=== PATIENT | male | born 1970 | race Caucasian/White ===

== ENCOUNTER 2022-08-23 17:07 | Emergency (ER) | payer MEDICARE, MEDICAID, SELFPAY ==
--- NOTE | ~2022-08-23 | CT_ITS ---
EXAMINATION: CT ABDOMEN AND PELVIS WITH CONTRAST CLINICAL INFORMATION: Right upper quadrant pain. COMPARISON: CT abdomen/pelvis 01/04/2018. TECHNIQUE: Multidetector volumetric images were obtained from the superior aspect of the liver through the pubic symphysis following administration 85 mL of Omnipaque 350 intravenous contrast. Sagittal and coronal reformatted images were obtained on the technologist's workstation. Oral contrast: No This CT examination was performed using dose optimization techniques as appropriate, variously including the following: *Automated exposure control *Adjustment of mA and/or kV according to patient size (this includes techniques or standardized protocols for targeted exams where dose is matched to indication/reason for exam; i.e. extremities or head) *Use of iterative reconstruction technique DLP: 467 mGy-cm FINDINGS: LUNG BASES: Small calcified granulomas in the right lower lobe. No consolidation or pleural effusion. LIVER, GALLBLADDER, AND BILIARY TREE: The liver is normal in size, shape and attenuation. No focal liver lesion. No evidence of calcified cholelithiasis or associated inflammatory changes to suspect acute cholecystitis. There is mild intrahepatic biliary ductal dilatation, as well as mild dilatation of the common hepatic duct and upper third of the common bile duct. No discrete calcified choledocholithiasis noted. PANCREAS: No peripancreatic free fluid or fat stranding. The main duct is nondilated. SPLEEN: Unremarkable. ADRENAL GLANDS: Unremarkable. KIDNEYS AND URETERS: Bilateral simple cysts, largest in the right kidney measuring up to 8 cm craniocaudally, for which no imaging follow-up is recommended. Symmetric nephrograms. No hydronephrosis. No perinephric fat stranding. BLADDER: Unremarkable. GASTROINTESTINAL TRACT: Nonspecific gastric distention. There is moderate wall thickening of proximal jejunum (2:41). No abnormal small bowel dilatation. Postsurgical changes from prior appendectomy. The transverse and left hemicolon are underdistended limiting assessment of wall thickening. Mild colonic diverticulosis without significant pericolonic fat stranding. Moderate amount of stool in the rectum. ABDOMINAL WALL: No significant hernia is appreciated. LYMPH NODES: No lymphadenopathy. VASCULAR: Normal caliber abdominal aorta. PELVIC VISCERA: Unremarkable. OSSEOUS STRUCTURES: No acute or aggressive appearing osseous abnormalities. CT/CT abdomen pelvis w IV con IMPRESSION: 1. Moderate wall thickening of a short segment of the proximal jejunum. Correlate clinically for acute enteritis and recommend a follow-up to ensure resolution. 2. Mild indeterminate intra and extrahepatic biliary duct dilatation without evidence of calcified choledocholithiasis. Correlation with MRCP could be obtained as clinically indicated. 3. Nonspecific gastric dilatation, differential consideration include postprandial state, gastroparesis or gastric outlet obstruction. 4. Mild colonic diverticulosis without evidence of acute diverticulitis.
[2022-08-23 17:11] VITALS: BP 158/107; PULSE 73; RESP 18; TEMP 36.8; O2SAT 97; BMI 23.6
--- NOTE | 2022-08-23 17:15 | ECG_ITS ---
Test Reason : CHEST PAIN Blood Pressure : / mmHG Vent. Rate : 076 BPM Atrial Rate : 076 BPM P-R Int : 128 ms QRS Dur : 092 ms QT Int : 372 ms P-R-T Axes : 064 045 023 degrees QTc Int : 418 ms Normal sinus rhythm with sinus arrhythmia Normal ECG When compared with ECG of 04-JAN-2018 22:49, No significant change was found Referred By: Generic ED Physician Electronically Signed By:KELLY HANDLEY
[2022-08-23 17:35] LABS: Basophils Absolute Auto 0.1 X10*3/uL (0.0-0.2); Basophils Percent Auto 0.7 % (0-2); Eosinophils Percent Auto 0.3 % (0-4); Hematocrit 45.2 % (42.0-52.0); Hemoglobin 15.4 g/dl (14.0-18.0); Imm Gran Abs Auto 0.07 X10*3/uL (0.00-0.03); Imm Gran Pct Auto 0.5 % (0.0-0.4); Lymphocytes Absolute Auto 1.6 X10*3/uL (1.2-4.9); Lymphocytes Percent Auto 11.2 % (20-40); MANUAL DIFF FLAG NO; Mean Corpuscular HGB Conc 34.1 g/dl (31.0-36.0); Mean Corpuscular Hemoglobin 29.4 pg (27.0-33.0); Mean Corpuscular Volume 86.3 fL (80.0-98.0); Mean Platelet Volume 9.5 fL (9.4-12.4); Monocytes Absolute Auto 0.9 X10*3/uL (0.1-1.2); Monocytes Percent Auto 6.2 % (2-11); Neutrophils Absolute Auto 11.4 x10*3/uL (2.0-8.3); Neutrophils Percent Auto 81.1 % (45-73); Platelet Count 385 X10*3/uL (160-400); Red Blood Count 5.24 X10*6/uL (4.60-5.80); Red Cell Distribution Width 12.1 % (11.0-16.0)
[2022-08-23 17:56] LABS: Alanine Aminotransferase 60 U/L (0-40); Albumin Level 4.8 g/dL (3.5-5.0); Alkaline Phosphatase 82 U/L (39-117); Anion Gap 15 (12-20); Aspartate Amino Transferase 56 U/L (5-37); Bilirubin Direct 0.6 mg/dL (0.0-0.5); Bilirubin Total 1.1 mg/dL (0.0-1.0); Blood Urea Nitrogen 12 mg/dL (9-16); Calcium 10.8 mg/dL (8.4-10.2); Carbon Dioxide 32 mmol/L (22-29); Chloride 100 mmol/L (96-108); Estimated Glomerular Filt Rate > 60; Glucose Random 121 mg/dL (60-115); Lipase 24 U/L (8-78); Potassium 5.5 mmol/L (3.3-5.1); Sodium 141 mmol/L (135-145)
[2022-08-23 17:59] LABS: B Type Natriuretic Peptide < 10 pg/mL (<100)
[2022-08-23 18:03] LABS: Troponin-I High Sensitivity < 2.7 ng/L (<3.5-35.0)
[2022-08-23 18:18] VITALS: BP 155/95; PULSE 78; RESP 20; TEMP 37.4; O2SAT 97
--- NOTE | 2022-08-23 18:43 | ED.CHESTPAIN ---
HPI - Chest Pain General Chief Complaint: Chest Pain Stated Complaint: Mid chest pain, mid abd pain Time Seen by Provider: 08/23/22 18:42 Source: patient and family (, Rashida) Mode of arrival: ambulatory Limitations: no limitations History of Present Illness HPI narrative: 52-year-old male who presents emergency department for evaluation lower chest and upper abdominal pain which began at 14:30 hours. Patient states that he had a bowl of cereal to eat at noon time. He states that he was watching television at 14:30 hours when he had a sudden onset of lower chest and upper abdominal pain. He states the pain is been constant since onset but waxing waning intensity. The pain is 8/10 at its worst. He states that this is his 3rd to 4th episode of this type of pain in the last 2-3 weeks. He believes the pain comes on several hours after eating food. He took some anti-gas medication with no relief his pain. Describes the pain is a tightness and burning sensation. He denied fever but he did have chills and sweats. He had nausea with no vomiting. He denied shortness of breath or dyspnea on exertion. He denied dark tarry stools or bloody stools. He denied frequency, urgency or dysuria. Past surgical history is significant for appendectomy. Related Data Allergies Allergy/AdvReac Type Severity Reaction Status Date / Time No Known Allergies Allergy Unverified 11/20/19 15:22 [No Known Allergies*] Review of Systems Review of Systems: Yes all other systems are reviewed and are negative [facility] Past Medical History [facility] Narrative: Past medical history: Hypertension, hyperlipidemia, asthma, anxiety, degenerative disc disease. Past surgical history: Appendectomy. Social history: The patient is a former smoker and quit smoking 8 years prior. He drinks alcohol rarely. He denies drug use. Social History Social History Alcohol intake: never Smoked in Last 30 Days: No Advance Directives: No Advance Directives Information Provided: Yes Physical Exam Vital Signs: Vital Signs: Last Vital Signs Temp 99.3 F 08/23/22 18:18 Pulse 86 08/23/22 20:13 Resp 14 08/23/22 20:13 BP 145/82 H 08/23/22 20:13 Pulse Ox 99 08/23/22 20:13 O2 Del Method Room Air 08/23/22 20:13 BMI result Body Mass Index 23.6 Const: General: cooperative and no acute distress Orientation/consciousness: oriented to person and oriented to place Limitations: no limitations HEENT: Head: Yes normal to inspection, Yes normocephalic and Yes atraumatic Ears: external ears normal General nose exam: Normal external nose present Face and sinus: Yes normal facial exam Mouth: Normal oral and palatal mucosa present Throat: Yes posterior oropharynx normal Eyes: General: appearance normal, both eyes and all related structures Pupils: Equal, round and reactive pupils present Neck: Neck: Yes normal visual inspection, Yes no lymphadenopathy, Yes trachea midline and Yes supple Chest: Chest palpation & inspection: normal inspection of the chest and normal palpation of entire chest wall Resp: Effort & Inspection: normal respiratory effort and able to speak in complete sentences Auscultation: clear to auscultation bilaterally Cardio: Rate: regular rate Rhythm: regular rhythm Heart sounds: S1 normal heart sound present, S2 normal heart sound present and no murmurs GI: Other: Patient's abdomen does not appear to be distended, has normoactive bowel sounds, he has moderate to severe right upper quadrant tenderness with a positive Espinoza sign, there is no voluntary or involuntary guarding : General: Yes no CVA tenderness Back/Spine/Pelvis: Back: no CVA tenderness Skin: General skin exam: no rashes or lesions noted Neuro: General: oriented to person and oriented to place Cranial nerves: Yes CN's II-XII intact bilaterally and Yes Equal, round and reactive pupils present Cognition (Neuro): normal cognition Motor exam (neuro): 5/5 motor strength present throughout Extrem: General: Yes normal to inspection Psych: Appearance: grossly normal Speech and movement: Normal speech and movement present Affect: normal affect Attitude: cooperative Thought process: Normal thought process present Thought content: Normal thought content present Medications Administered Discontinued Medications Generic Name Dose Route Start Last Admin Trade Name Freq PRN Reason Stop Dose Admin Sodium Chloride 1,000 mls @ 999 mls/hr 08/23/22 19:00 08/23/22 21:25 Ns IV 08/23/22 20:00 Infused .Q1H1M STA Infusion Iohexol 100 ml 08/23/22 19:52 08/23/22 19:52 Iohexol 350 Mg/Ml 100 Ml Infus..Btl IV 08/23/22 19:53 85 ml ONCE ONE Administration Ketorolac Tromethamine 15 mg 08/23/22 19:00 08/23/22 19:54 Ketorolac Tromethamine 15 Mg/Ml Vial IVPUSH 08/23/22 19:01 15 mg ONCE STA Administration Morphine Sulfate 4 mg 08/23/22 19:00 08/23/22 19:54 Morphine Sulfate 4 Mg/Ml Cartridge IVPUSH 08/23/22 19:01 4 mg ONCE STA Administration Protocol Ondansetron HCl 4 mg 08/23/22 19:00 08/23/22 19:54 Ondansetron Hcl 4 Mg/2 Ml Vial IVPUSH 08/23/22 19:01 4 mg ONCE ONE Administration Medical Decision Making Medical Decision Making MDM Narrative: 52-year-old male who presents emergency department for evaluation of bilateral lower chest and right upper quadrant tenderness which began suddenly at 14:30 hours while he was at rest. Patient had serial to eat at noon time. He states that this is 3rd to 4th episode of this type of pain in the last 2 weeks. Patient took some anti-gas medications with only minimal improvement of his pain. Vital signs revealed an elevated blood pressure 158/107 otherwise unremarkable. Examination did reveal right upper quadrant tenderness with a positive Espinoza sign. Following tests were ordered CBC, BMP, troponin, BNP, lipase, liver panel, urinalysis, CT scan of the abdomen pelvis with IV contrast. Patient was ordered to get Toradol 15 mg IV, morphine 4 mg IV, Zofran 4 mg IV and normal saline x1 L 2209: Patient's laboratory evaluation revealed slight elevation in his AST and ALT with normal alk-phos and normal lipase. Patient did have an elevated WBC. Patient's abdominal pain improved significantly above treatment, patient has tenderness resolved completely. CT scan of the abdomen pelvis with IV con did not reveal a clear etiology for the patient's pain. Concerned the patient's pain may be secondary biliary colic. We do not have ultrasound this evening. Patient was advised to contact his PCP to get a gallbladder ultrasound as soon as possible to evaluate for possible gallstones. Patient was advised to stay on a low-fat diet and to return to the emergency department if this pain got worse worker to help in you symptoms were concerning to him. Differential Diagnosis Differential diagnosis includes but is not limited to cholecystitis, diverticulitis, pancreatitis, viral syndrome, gastritis Admission/Observation Consideration of admission/observation: Escalation of care including admission/observation considered Lab Data MDM Lab Attestation statement: I reviewed the patient's lab results. My interpretation patient's laboratory evaluation is as follows: Elevated WBC 75923. Elevated potassium 5.5. Elevated bicarb 32. Elevated glucose 121. Elevated AST and ALT of 56 and 60 with normal alk-phos of 82. Elevated total bilirubin 1.1. Troponin was below detectable limits. Lipase was normal. 08/23/22 17:30 08/23/22 17:30 Labs: Lab Results 08/23/22 08/23/22 08/23/22 Range/Units 17:30 17:30 17:30 WBC 14.0 H (4.8-10.8) X10*3/uL RBC 5.24 (4.60-5.80) X10*6/uL Hgb 15.4 (14.0-18.0) g/dl Hct 45.2 (42.0-52.0) % MCV 86.3 (80.0-98.0) fL MCH 29.4 (27.0-33.0) pg MCHC 34.1 (31.0-36.0) g/dl RDW 12.1 (11.0-16.0) % Plt Count 385 (160-400) X10*3/uL MPV 9.5 (9.4-12.4) fL Immature Gran % (Auto) 0.5 H (0.0-0.4) % Neut % (Auto) 81.1 H (45-73) % Lymph % (Auto) 11.2 L (20-40) % [place] % (Auto) 6.2 (2-11) % Eos % (Auto) 0.3 (0-4) % Baso % (Auto) 0.7 (0-2) % Lymph # (Auto) 1.6 (1.2-4.9) X10*3/uL [place] # (Auto) 0.9 (0.1-1.2) X10*3/uL Eos # (Auto) 0.0 (0.0-0.4) X10*3/uL Baso # (Auto) 0.1 (0.0-0.2) X10*3/uL Abs Immat Gran (auto) 0.07 H (0.00-0.03) X10*3/uL Absolute Neuts (auto) 11.4 H (2.0-8.3) x10*3/uL Absolute Nucleated RBC 0.000 (0.0-0.012) X10*3/uL Nucleated RBC % (auto) 0.0 (0.0-0.2) /100WBC Sodium 141 (135-145) mmol/L Potassium 5.5 H (3.3-5.1) mmol/L Chloride 100 (96-108) mmol/L Carbon Dioxide 32 H (22-29) mmol/L Anion Gap 15 (12-20) BUN 12 (9-16) mg/dL Creatinine 1.16 (0.5-1.4) mg/dL Estim Creat Clear Calc 68.0 Estimated GFR > 60 Random Glucose 121 H (60-115) mg/dL Calcium 10.8 H (8.4-10.2) mg/dL Total Bilirubin 1.1 H (0.0-1.0) mg/dL Direct Bilirubin 0.6 H (0.0-0.5) mg/dL AST 56 H (5-37) U/L ALT 60 H (0-40) U/L Alkaline Phosphatase 82 (39-117) U/L Troponin I High Sens < 2.7 (<3.5-35.0) ng/L B-Natriuretic Peptide (<100) pg/mL Total Protein 8.0 (6.5-8.0) g/dL Albumin 4.8 (3.5-5.0) g/dL Lipase 24 (8-78) U/L Urine Color Urine Appearance Urine pH (5.0-9.0) Ur Specific [place] (1.005-1.025) Urine Protein (Neg-Trace) mg/dL Urine Glucose (UA) (Negative) mg/dL Urine Ketones (Negative) mg/dL Urine Blood (Negative) Urine Nitrite (Negative) Ur Leukocyte Esterase (Negative) 08/23/22 08/23/22 Range/Units 17:30 21:33 WBC (4.8-10.8) X10*3/uL RBC (4.60-5.80) X10*6/uL Hgb (14.0-18.0) g/dl Hct (42.0-52.0) % MCV (80.0-98.0) fL MCH (27.0-33.0) pg MCHC (31.0-36.0) g/dl RDW (11.0-16.0) % Plt Count (160-400) X10*3/uL MPV (9.4-12.4) fL Immature Gran % (Auto) (0.0-0.4) % Neut % (Auto) (45-73) % Lymph % (Auto) (20-40) % [place] % (Auto) (2-11) % Eos % (Auto) (0-4) % Baso % (Auto) (0-2) % Lymph # (Auto) (1.2-4.9) X10*3/uL [place] # (Auto) (0.1-1.2) X10*3/uL Eos # (Auto) (0.0-0.4) X10*3/uL Baso # (Auto) (0.0-0.2) X10*3/uL Abs Immat Gran (auto) (0.00-0.03) X10*3/uL Absolute Neuts (auto) (2.0-8.3) x10*3/uL Absolute Nucleated RBC (0.0-0.012) X10*3/uL Nucleated RBC % (auto) (0.0-0.2) /100WBC Sodium (135-145) mmol/L Potassium (3.3-5.1) mmol/L Chloride (96-108) mmol/L Carbon Dioxide (22-29) mmol/L Anion Gap (12-20) BUN (9-16) mg/dL Creatinine (0.5-1.4) mg/dL Estim Creat Clear Calc Estimated GFR Random Glucose (60-115) mg/dL Calcium (8.4-10.2) mg/dL Total Bilirubin (0.0-1.0) mg/dL Direct Bilirubin (0.0-0.5) mg/dL AST (5-37) U/L ALT (0-40) U/L Alkaline Phosphatase (39-117) U/L Troponin I High Sens (<3.5-35.0) ng/L B-Natriuretic Peptide < 10 (<100) pg/mL Total Protein (6.5-8.0) g/dL Albumin (3.5-5.0) g/dL Lipase (8-78) U/L Urine Color Yellow Urine Appearance Clear Urine pH 6.0 (5.0-9.0) Ur Specific [place] >= 1.030 H (1.005-1.025) Urine Protein Negative (Neg-Trace) mg/dL Urine Glucose (UA) Negative (Negative) mg/dL Urine Ketones Negative (Negative) mg/dL Urine Blood Negative (Negative) Urine Nitrite Negative (Negative) Ur Leukocyte Esterase Negative (Negative) Independent Interpretation I performed an independent interpretation of an: EKG Interpretation: My interpretation the patient's 12 EKG done at 17:21 hours is as follows: Normal sinus rhythm with a rate of 76, normal CA interval, QRS duration QTC interval, no ST segment elevation, no ST segment depression, no significant T-wave abnormalities, no PACs, no PVCs this is a normal EKG. Radiology Impression Discussion of test interpretation with radiology: I have reviewed the radiologist's reading. Radiologist Impression: CT abdomen pelvis w IV con IMPRESSION: 1. Moderate wall thickening of a short segment of the proximal jejunum. Correlate clinically for acute enteritis and recommend a follow-up to ensure resolution. 2. Mild indeterminate intra and extrahepatic biliary duct dilatation without evidence of calcified choledocholithiasis. Correlation with MRCP could be obtained as clinically indicated. 3. Nonspecific gastric dilatation, differential consideration include postprandial state, gastroparesis or gastric outlet obstruction. 4. Mild colonic diverticulosis without evidence of acute diverticulitis. Dictated By:Kiesha EscobarSigned By:<Electronically signed by Kiesha Escobar in OV> Discharge Plan Discharge Clinical Impression: Biliary colic Abdominal pain Qualifiers: Abdominal location: right upper quadrant Qualified Code(s): R10.11 - Right upper quadrant pain Patient Disposition: Home, Self-Care Instructions: Biliary Colic (ED), Low Fat Diet (ED) Additional Instructions: Your laboratory evaluation did reveal an elevated white blood cell count and a slight elevation in your liver tests. Your abdominal exam did reveal significant tenderness with palpation of the right upper quadrant of your abdomen, your gallbladder is located in this area The CT scan of your abdomen pelvis with IV contrast did not reveal any gallbladder wall thickening or any other finding that explains your pain. I am concerned that you have gallstones, these do not show up on CT scans(they are made out of cholesterol) but gallstones do show up on ultrasound You need to call your doctor tomorrow and get an outpatient ultrasound of your gallbladder. If you have gallstones then you will need to follow-up with the surgeon to determine if your gallbladder needs to be removed. Stay on a low-fat diet. Please return to the emergency department if her symptoms get worse or if you develop any new symptoms that are concerning to you. If you have gallstones on your ultrasound, you can follow-up with our on-call surgeon, Dr. García or your primary care doctor can refer you to a surgeon. Referrals: Jayy García MD [Physician] - 1 week (Right upper quadrant pain concerning for biliary colic)
[2022-08-23] MEDS: iohexoL 350 MG/ML 100 ML INFUS..BTL IV (19:52)
[2022-08-23] MEDS: 0.9 % Sodium Chloride 1,000 ML 999 ML IV (19:53)
[2022-08-23] MEDS: Ketorolac Tromethamine 15 MG/ML VIAL IVPUSH (19:54)
[2022-08-23] MEDS: Morphine Sulfate 4 MG/ML CARTRIDGE IVPUSH (19:54)
[2022-08-23] MEDS: ondansetron HCL 4 MG/2 ML VIAL IVPUSH (19:54)
[2022-08-23 19:57] VITALS: BP 149/79; PULSE 75; RESP 14; O2SAT 99
[2022-08-23 20:13] VITALS: BP 145/82; PULSE 86; RESP 14; O2SAT 99
[2022-08-23 21:41] LABS: Appearance Urine Clear; Color Urine Yellow; Glucose Urine UA Negative (Negative); Leukocyte Esterase Urine Negative (Negative); Nitrite Urine Negative (Negative); Specific Gravity - Urine >= 1.030 (1.005-1.025); Urine Blood Negative (Negative); Urine Ketones Negative (Negative); Urine Protein Negative (Neg-Trace)
== END 2022-08-23 22:25 | disposition home or self-care (01) ==
PROVIDERS: Emergency Provider Emergency Medicine Emergency Medical Services
DX: K80.50 Calculus of bile duct without cholangitis or cholecystitis without obstruction (principal); R10.11 Right upper quadrant pain
CPT/HCPCS: 36415; 74177; 80048; 80076; 81003; 83690; 83880; 84484; 85025; 93005; 96361; 96374; 96375; 99284; 99285; J1885; J2270; J2405; Q9967

== ENCOUNTER 2022-08-30 07:54 | Day surgery (SDC) | payer MEDICARE, MEDICAID, SELFPAY ==
[2022-08-30] VITALS (15 sets, daily range): BP systolic 127–179; BP diastolic 74–104; PULSE 60–99; RESP 11–24; TEMP 36.1–36.8; O2SAT 97–100; BMI 23.6
--- NOTE | ~2022-08-30 | US_ITS ---
EXAMINATION: US ABDOMEN LIMITED CLINICAL INFORMATION: Epigastric abdominal pain. Evaluate for acute cholecystitis.. COMPARISON: CT abdomen and pelvis from 08/23/2022 TECHNIQUE: Real-time limited imaging of the right upper quadrant abdominal viscera is focused on the gallbladder and common duct. FINDINGS: Gallbladder is physiologically distended and its wall thickness is 2-3 mm. No gallbladder wall edema or pericholecystic fluid. Small mobile stones are present in the gallbladder. No polyps or sludge. Common bile duct is mildly dilated up to 0.7 cm diameter. Mild ductal dilatation also observed on the recent abdomen CT from 08/23/2022. The visualized proximal common bile duct has normal contour. No stones within the visualized portion of the duct. The distal CBD is obscured by bowel gas. No free fluid in the visualized portion of the abdomen. The visualized segments of the liver have normal contour and echotexture. US/US abdomen limited IMPRESSION: * Cholelithiasis without sonographic evidence of acute cholecystitis. * Common bile duct is mildly dilated to 0.7 cm diameter, unchanged compared to recent abdomen CT from 08/23/2022. Consider correlation with bilirubin levels and liver function tests. If there is any clinical suspicion for potential choledocholithiasis, then further evaluation with MRCP could be performed.
--- NOTE | 2022-08-30 08:09 | ED.ABDPAIN ---
HPI - Abdominal Pain General Chief Complaint: Abdominal Pain Stated Complaint: gallbladder pain Time Seen by Provider: 08/30/22 07:58 Source: patient Mode of arrival: ambulatory Limitations: no limitations History of Present Illness HPI narrative: 52-year-old male presents for abdominal pain. The abdominal pain is in the upper abdomen. As severe, 8/10. It is constant. There is no clear relieving or exacerbating features. Pain is described as aching and pressure-like. Denies any nausea vomiting. Denies any fevers or chills. Denies any urinary complaints. Patient was in the emergency department yesterday. Had a CT scan which did show some possible dilation of the bile ducts. There are no other acute findings found. Related Data Allergies Allergy/AdvReac Type Severity Reaction Status Date / Time No Known Allergies Allergy Unverified 08/30/22 08:04 [No Known Allergies*] Review of Systems Review of Systems CONSTITUTIONAL: Denies weight loss, fever and chills. HEENT: Denies changes in vision and hearing. RESPIRATORY: Denies SOB and cough. CV: Denies palpitations no CP. GI: See HPI : Denies dysuria and urinary frequency. MSK: Denies myalgia and joint pain. SKIN: Denies rash and pruritus. NEUROLOGICAL: Denies headache and syncope. PSYCHIATRIC: Denies recent changes in mood. Denies anxiety and depression. All other ROS are negative unless in HPI [facility] Social History Social History Alcohol intake: never Advance Directives: No Physical Exam ED Vital Signs: Vital Signs - 24 hr 08/30/22 08:00 08/30/22 08:15 Temperature 98.2 F Pulse Rate 82 Respiratory Rate 22 H 24 H Blood Pressure 179/104 H Pulse Oximetry 100 Oxygen Delivery Method Room Air BMI result Body Mass Index 23.6 GEN: Well developed, no acute distress, alert, oriented HEENT: Normocephalic, atraumatic, normal external ears, nose appears normal, no oropharyngeal edema or exudates Eyes: Normal to appearance Neck: Supple, no lymphadenopathy Respiratory: Talks in complete sentences, no respiratory distress, clear to auscultation bilaterally Cardiovascular: Regular rate and rhythm, no murmurs rubs or gallops Abdomen: Soft, upper abdominal tenderness, positive sonographic Espinoza sign, nondistended, no guarding, no rebound Back: No CVA tenderness Extremities: No clubbing cyanosis or edema Neurologic: No focal neurologic deficits, cranial nerves 2-12 intact, strength is 5/5 bilaterally Skin: No rash Procedures Procedure Narrative Procedure Narrative: Bedside ultrasound: Mild gallbladder wall distention, no gallbladder wall thickening, no pericholecystic fluid, no definitive stones found, sludge possible, positive sonographic Espinoza's Course Course Course Narrative: The workup is complete. Lab work shows increasingly elevated LFTs. Normal lipase. There is no evidence of pancreatitis. Per previous CT scan 1 week ago, there is no colitis, diverticulitis or appendicitis. Pain is in the upper abdomen. Diagnosis most likely biliary colic. Patient was seen by Dr. Bain and will be admitted for a cholecystectomy. Medical Decision Making Medical Decision Making [facility] Narrative: 52-year-old male presents with abdominal pain. Patient was here just a couple of days ago. His pain is currently severe. Uncomfortable appearing. Bedside ultrasound revealed mildly distended gallbladder, normal gallbladder wall thickness and no CBD dilatation. Will order an official ultrasound to follow this up. Patient was noted yesterday I have some elevated liver function test. Will review repeat those as well. Differential diagnosis will include biliary colic, acute cholecystitis, pancreatitis, colitis, IBD, IBS, abdominal pain of unclear etiology. Differential Diagnosis Differential Diagnoses: The differential diagnosis associated with the presentation includes (See above) Biliary colic Admission/Observation Consideration of admission/observation: Escalation of care including admission/observation considered (Patient may require hospitalization if imaging study confirms the diagnosis of biliary related symptoms or if pain is uncontrolled.) Lab Data [facility] Lab Attestation statement: I reviewed the patient's lab results. 08/30/22 08:10 08/30/22 08:10 Labs: Lab Results 08/30/22 08/30/22 08/30/22 Range/Units 08:10 08:10 08:40 WBC 11.4 H (4.8-10.8) X10*3/uL RBC 5.12 (4.60-5.80) X10*6/uL Hgb 14.8 (14.0-18.0) g/dl Hct 44.2 (42.0-52.0) % MCV 86.3 (80.0-98.0) fL MCH 28.9 (27.0-33.0) pg MCHC 33.5 (31.0-36.0) g/dl RDW 12.2 (11.0-16.0) % Plt Count 310 (160-400) X10*3/uL MPV 9.8 (9.4-12.4) fL Immature Gran % (Auto) 0.6 H (0.0-0.4) % Neut % (Auto) 68.8 (45-73) % Lymph % (Auto) 21.7 (20-40) % [place] % (Auto) 7.1 (2-11) % Eos % (Auto) 1.1 (0-4) % Baso % (Auto) 0.7 (0-2) % Lymph # (Auto) 2.5 (1.2-4.9) X10*3/uL [place] # (Auto) 0.8 (0.1-1.2) X10*3/uL Eos # (Auto) 0.1 (0.0-0.4) X10*3/uL Baso # (Auto) 0.1 (0.0-0.2) X10*3/uL Abs Immat Gran (auto) 0.07 H (0.00-0.03) X10*3/uL Absolute Neuts (auto) 7.8 (2.0-8.3) x10*3/uL Absolute Nucleated RBC 0.000 (0.0-0.012) X10*3/uL Nucleated RBC % (auto) 0.0 (0.0-0.2) /100WBC Sodium 139 (135-145) mmol/L Potassium 4.0 D (3.3-5.1) mmol/L Chloride 101 (96-108) mmol/L Carbon Dioxide 28 (22-29) mmol/L Anion Gap 14 (12-20) BUN 17 H (9-16) mg/dL Creatinine 0.99 (0.5-1.4) mg/dL Estim Creat Clear Calc 79.7 Estimated GFR > 60 Random Glucose 112 (60-115) mg/dL Calcium 9.9 D (8.4-10.2) mg/dL Total Bilirubin 1.0 (0.0-1.0) mg/dL AST 121 H (5-37) U/L ALT 176 H (0-40) U/L Alkaline Phosphatase 130 H (39-117) U/L Total Protein 7.3 (6.5-8.0) g/dL Albumin 4.4 (3.5-5.0) g/dL Lipase 36 (8-78) U/L Urine Color Yellow Urine Appearance Clear Urine pH 5.5 (5.0-9.0) Ur Specific [place] 1.020 (1.005-1.025) Urine Protein Negative (Neg-Trace) mg/dL Urine Glucose (UA) Negative (Negative) mg/dL Urine Ketones Negative (Negative) mg/dL Urine Blood Trace H (Negative) Urine Nitrite Negative (Negative) Ur Leukocyte Esterase Negative (Negative) Urine RBC 0-2 (0-2) /HPF Urine WBC 0-5 (0-5) /HPF Ur Squamous Epith Cells 0-2 (0-2) /HPF Urine Bacteria None Seen (None Seen) Hyaline Casts 0-2 (0-2) /LPF Independent Interpretation I performed an independent interpretation of an: Ultrasound (All abdomen: No significant gallbladder dilation, gallbladder wall thickening normal, possibly mild thickened CBD. Evidence of small stones but no large choledocholithiasis or stone in the neck) Radiology Impression Discussion of test interpretation with radiology: I have reviewed the radiologist's reading. Radiologist Impression: US/US abdomen limited IMPRESSION: *? Cholelithiasis without sonographic evidence of acute cholecystitis. *? Common bile duct is mildly dilated to 0.7 cm diameter, unchanged compared to recent abdomen CT from 08/23/2022. Consider correlation with bilirubin levels and liver function tests. If there is any clinical suspicion for potential choledocholithiasis, then further evaluation with MRCP could be performed. Dictated By: Marv Jaimes MD Signed By: <Electronically signed by Marv Jaimes MD in OV> 08/30/22 0940 DD/ 0851 TD/TT:? 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 History obtained from or confirmed by: Spouse External Record Review CT/CT abdomen pelvis w IV con IMPRESSION: 1.? Moderate wall thickening of a short segment of the proximal jejunum. Correlate clinically for acute enteritis and recommend a follow-up to ensure resolution. 2.? Mild indeterminate intra and extrahepatic biliary duct dilatation without evidence of calcified choledocholithiasis. Correlation with MRCP could be obtained as clinically indicated. 3.? Nonspecific gastric dilatation, differential consideration include postprandial state, gastroparesis or gastric outlet obstruction. 4.? Mild colonic diverticulosis without evidence of acute diverticulitis. Dictated By: Kiesha Escobar Signed By: <Electronically signed by Kiesha? Luz in OV> 08/23/222134 Prescription Management I considered prescription management with: Pain Medication and Antibiotic Medications Administered Discontinued Medications Generic Name Dose Route Start Last Admin Trade Name Freq PRN Reason Stop Dose Admin Sodium Chloride 1,000 mls @ 999 mls/hr 08/30/22 08:15 08/30/22 10:09 Ns IV 08/30/22 09:15 Infused .Q1H1M ZAK Infusion Ketorolac Tromethamine 15 mg 08/30/22 08:09 08/30/22 08:15 Ketorolac Tromethamine 15 Mg/Ml Vial IVPUSH 08/30/22 08:10 15 mg ONCE ONE Administration Morphine Sulfate 4 mg 08/30/22 08:09 08/30/22 08:15 Morphine Sulfate 4 Mg/Ml Cartridge IVPUSH 08/30/22 08:10 4 mg ONCE ONE Administration Protocol Pantoprazole Sodium 80 mg 08/30/22 08:12 08/30/22 08:29 Pantoprazole Sodium 40 Mg/10 Ml Vial IVPUSH 08/30/22 08:13 80 mg ONCE ONE Administration Discharge Plan Discharge Clinical Impression: Biliary colic Patient Disposition: Admitted As Inpatient
[2022-08-30] MEDS: 0.9 % Sodium Chloride 1,000 ML 999 ML IV (08:15)
[2022-08-30] MEDS: Morphine Sulfate 4 MG/ML CARTRIDGE IVPUSH (08:15)
[2022-08-30] MEDS: Ketorolac Tromethamine 15 MG/ML VIAL IVPUSH (08:15)
--- OUTSIDE RECORDS SUMMARY | 2022-08-30 08:15 | XMS_ITS | Continuity of Care Document ---
Author Name Unknown Organization [facility] Address [address] [place] [address]- Care Team Providers Care Metal Moulder Name Role Phone Delia Ambriz MD Primary Care Physician [phone] [place] [facility] [place] [facility] [address] [place], [place] [id number]- Attending Physician: Rose Marie Conn Admitting Physician: Rose Marie Conn Referring Physician: Rose Marie Conn Allergies, Adverse Reactions, Alerts No Known Allergies Medications clonazePAM 0.5 mg oral tablet TAKE 1 TABLET IN THE MORNING AND 1 TABLET AT BEDTIME NEEDED FOR ANXIETY FOR UP TO 28 DAYS Start Date: 07/06/22 Status: Ordered gemfibrozil 600 mg oral tablet TAKE 1 TABLET BY MOUTH EVERY DAY Start Date: 07/06/22 Status: Ordered ibuprofen 600 mg oral tablet TAKE 1 TABLET (600 MG) BY MOUTH EVERY 6 (SIX) HOURS IF NEEDED FOR MILD PAIN. Start Date: 07/06/22 Status: Ordered lisinopril 10 mg oral tablet TAKE 1 TABLET BY MOUTH EVERY DAY Start Date: 07/06/22 Status: Ordered traMADol 50 mg oral tablet TAKE 2 TABLETS (100 MG) BY MOUTH EVERY 6 (SIX) HOURS IF NEEDED FOR SEVERE PAIN FOR UP TO 28 DAYS. Start Date: 07/06/22 Status: Ordered Laboratory * Event Display: Non Lab Results Authored Date: [id number] Patient Care team information Care Team Personnel Name: Delia Ambriz MD Position: [facility] Physician - Pediatrics Member Role: PCP Address: Address: [address] [place] [address]- Care Team Related Persons Name: YANNICK YOST Address: home [address] [place] [address] Name: DIMPLE ROSADO Address: home [address] [place] [address]
--- OUTSIDE RECORDS SUMMARY | 2022-08-30 08:15 | XMS_ITS | Continuity of Care Document ---
Author Name Unknown Organization [facility] ter Address [address] [place] [address]- Care Team Providers Care Cosmetics And Toiletries Salesperson Name Role Phone Delia Ambriz MD Primary Care Physician Encounter [facility] Date(s): 04/19/20 - 06/16/[address] [address] Attending Physician: Delia Ambriz MD Admitting Physician: Delia Ambriz MD Referring Physician: Delia Ambriz MD Allergies, Adverse Reactions, Alerts Substance Reaction Severity Status NKA Active
--- OUTSIDE RECORDS SUMMARY | 2022-08-30 08:15 | XMS_ITS | Continuity of Care Document ---
Author Name Unknown Organization [facility] ter Address [address] [place] [address]- Care Team Providers Care Nurse Recruiter Name Role Phone Katina BROOKS, Delia Primary Care Physician [phone] [place] [facility] [place] - 09/28/[address] [address]- [facility] Encounter Diagnosis Viral infection(Final) - 09/28/19 Discharge Disposition: A-D/C Home Attending Physician: Aicha Borja MD Admitting Physician: Aicha Borja MD Referring Physician: Not on Staff, Referring MD Allergies, Adverse Reactions, Alerts Substance Reaction Severity Status NKA Active Vital Signs Most recent to oldest [Reference Range]: 1 2 3 Height 170 cm (09/28/19 11:14 AM) Weight 70.5 kg (09/28/19 11:14 AM) Oxygen Saturation [94-100 %] 96 % (09/28/19 2:13 PM) 97 % (09/28/19 11:13 AM) Pulse Rate [55-90 bpm] 90 bpm (09/28/19 2:13 PM) 99 bpm *H* (09/28/19 11:13 AM) Blood Pressure [90-138/55-84 mm Hg] 133/90mm Hg (09/28/19 2:13 PM) 163/86mm Hg *H* (09/28/19 11:13 AM) Respiratory Rate [16-30 br/min] 18 br/min (09/28/19 2:13 PM) 16 br/min (09/28/19 12:59 PM) 16 br/min (09/28/19 12:24 PM) Temperature [96.8-100.4 DegF] 98.1 DegF (09/28/19 2:13 PM) 97.9 DegF (09/28/19 11:13 AM) Mode of Delivery (Oxygen) Room air (09/28/19 2:13 PM) Room air (09/28/19 11:13 AM) Blood pressure sites Arm, left (09/28/19 2:13 PM) Arm, right (09/28/19 11:13 AM) Temperature Route Oral (09/28/19 2:13 PM) Oral (09/28/19 11:13 AM) Dry Weight 70.5 kg (09/28/19 11:14 AM)
--- OUTSIDE RECORDS SUMMARY | 2022-08-30 08:15 | XMS_ITS | Continuity of Care Document ---
Author Name Unknown Organization [facility] ter Address [address] [place] [address]- Care Team Providers Care Steam Meter Reader Name Role Phone Delia Ambriz MD Primary Care Physician Encounter [facility] [place] Date(s): 05/20/20 - 05/21/[address] [address]- Discharge Disposition: A-D/C Walkout Attending Physician: Not on Staff, Attending MD Admitting Physician: Not on Staff, Admitting MD Referring Physician: Not on Staff, Referring MD Allergies, Adverse Reactions, Alerts Substance Reaction Severity Status NKA Active Vital Signs Most recent to oldest [Reference Range]: 1 2 Height 170 cm (05/20/20 8:44 PM) Weight 66.5 kg (05/20/20 8:44 PM) Oxygen Saturation [94-100 %] 98 % (05/20/20 8:44 PM) 100 % (05/20/20 6:02 PM) Pulse Rate [55-90 bpm] 94 bpm *H* (05/20/20 8:44 PM) 85 bpm (05/20/20 6:02 PM) Blood Pressure [90-138/55-84 mm Hg] 146/ 90mm Hg *H* (05/20/20 8:44 PM) 136/95mm Hg (05/20/20 6:02 PM) Respiratory Rate [16-30 br/min] 20 br/mi n (05/20/20 8:44 PM) 18 br/min (05/20/20 6:02 PM) Temperature [96.8-100.4 DegF] 98.9 DegF (05/20/20 8:44 PM) 99.5 DegF (05/20/20 6:02 PM) Mode of Delivery (Oxygen) Room air (05/20/20 8:44 PM) Room air (05/20/20 6:02 PM) Blood pressure sites Arm, right (05/20/20 6:02 PM) Temperature Route Oral (05/20/20 8:44 PM) Oral (05/20/20 6:02 PM) Dry Weight 66.5 kg (05/20/20 8:44 PM)
--- OUTSIDE RECORDS SUMMARY | 2022-08-30 08:15 | XMS_ITS | Continuity of Care Document ---
Author Name Unknown Organization [facility] Address [address] [place] [id number]- Care Team Providers Care Customer Retention Representative Name Role Phone Delia Ambriz MD Primary Care Physician [place] [facility] [place] Date(s): 12/19/21 - 01/18/22 [facility] [address] [place] [id number]- Allergies, Adverse Reactions, Alerts No Known Allergies Patient Care team information Care Team Personnel Name: Delia Ambriz MD Position: [facility] General Pediatrics Member Role: PCP Address: Address: [address] [place] [address]- [place] Care Team Related Persons Name: YANNICK YOST Address: home [address] [place] [address] Name: DIMPLE ROSADO Address: [address] [address]
[2022-08-30 08:16] LABS: MANUAL DIFF FLAG NO
[2022-08-30 08:23] LABS: Basophils Absolute Auto 0.1 X10*3/uL (0.0-0.2); Basophils Percent Auto 0.7 % (0-2); Eosinophils Absolute Auto 0.1 X10*3/uL (0.0-0.4); Eosinophils Percent Auto 1.1 % (0-4); Hematocrit 44.2 % (42.0-52.0); Hemoglobin 14.8 g/dl (14.0-18.0); Imm Gran Abs Auto 0.07 X10*3/uL (0.00-0.03); Imm Gran Pct Auto 0.6 % (0.0-0.4); Lymphocytes Absolute Auto 2.5 X10*3/uL (1.2-4.9); Lymphocytes Percent Auto 21.7 % (20-40); Mean Corpuscular HGB Conc 33.5 g/dl (31.0-36.0); Mean Corpuscular Hemoglobin 28.9 pg (27.0-33.0); Mean Corpuscular Volume 86.3 fL (80.0-98.0); Mean Platelet Volume 9.8 fL (9.4-12.4); Monocytes Absolute Auto 0.8 X10*3/uL (0.1-1.2); Monocytes Percent Auto 7.1 % (2-11); Neutrophils Absolute Auto 7.8 x10*3/uL (2.0-8.3); Neutrophils Percent Auto 68.8 % (45-73); Platelet Count 310 X10*3/uL (160-400); Red Blood Count 5.12 X10*6/uL (4.60-5.80); Red Cell Distribution Width 12.2 % (11.0-16.0); White Blood Count 11.4 X10*3/uL (4.8-10.8)
[2022-08-30] MEDS: Pantoprazole Sodium 40 MG/10 ML VIAL 80 MG IVPUSH (08:29)
--- NOTE | 2022-08-30 08:37 | PC.NURSE ---
PT here last week with abd pain as well, was d/c with f/u outpt, however pt pain worsened and pt was not able to get f/u appt. Pt returned today, IV placed, pain medications given with good effect. at bedside, orders placed for US.
[2022-08-30 08:39] LABS: Alanine Aminotransferase 176 U/L (0-40); Albumin Level 4.4 g/dL (3.5-5.0); Alkaline Phosphatase 130 U/L (39-117); Anion Gap 14 (12-20); Aspartate Amino Transferase 121 U/L (5-37); Blood Urea Nitrogen 17 mg/dL (9-16); Calcium 9.9 mg/dL (8.4-10.2); Carbon Dioxide 28 mmol/L (22-29); Chloride 101 mmol/L (96-108); Creatinine Clr Calc Pharmacy 79.7; Estimated Glomerular Filt Rate > 60; Glucose Random 112 mg/dL (60-115); Lipase 36 U/L (8-78); Sodium 139 mmol/L (135-145); Total Protein 7.3 g/dL (6.5-8.0)
[2022-08-30 08:50] LABS: Appearance Urine Clear; Color Urine Yellow; Glucose Urine UA Negative (Negative); Leukocyte Esterase Urine Negative (Negative); Nitrite Urine Negative (Negative); PH 5.5 (5.0-9.0); UMIC TRIGGER UACC YES; Urine Blood Trace (Negative); Urine Ketones Negative (Negative); Urine Protein Negative (Neg-Trace)
[2022-08-30 08:59] LABS: Bacteria Urine None Seen (None Seen); Hyaline Casts Urine 0-2 /LPF (0-2); RBC Urine 0-2 /HPF (0-2); Squamous Epithelial Cell Urine 0-2 /HPF (0-2); WBC Urine 0-5 /HPF (0-5)
--- NOTE | 2022-08-30 10:31 | PM.HPGS ---
History of Present Illness History of Present Illness Date of Service: 08/30/22 Chief complaint: gallbladder pain Narrative: Rafael Tabor is a 52 year old malePresenting with complaints of abdominal pain in the right upper quadrant radiating to the right back. He has had several severe episodes over the past month with similar symptoms. His current symptoms began approximately 3 hours after eating addition of ice cream at approximately 01:00. Reports nausea without vomiting, fever and chills. The pain seems to increase in severity he subsequently presented to the emergency department for further evaluation. Previous evaluation [address] abdomen and pelvis revealed an elevated WBC, distended gallbladder with a mildly dilated common bile duct. Workup on the current presentation revealed mildly elevated WBC, mildly elevated transaminases with normal bilirubin. Ultrasound of the abdomen revealed a gallstone floating within the gallbladder with a distended gallbladder. No gallbladder wall thickening or pericholecystic fluid was identified. Findings are suggestive of acute cholecystitis due to cholelithiasis. Review of Systems Review of Systems: Yes all other systems are reviewed and are negative Constitutional: Constitutional: Reports chills, Reports fever(s), Denies headache(s), Denies poor appetite and Denies weakness ENT: Denies headache(s) Cardiovascular: Cardiovascular: Denies chest pain, Denies irregular heart rhythm, Denies palpitations and Denies dyspnea Respiratory: Respiratory: Denies cough, Denies excessive phlegm production and Denies dyspnea Gastrointestinal: Gastrointestinal: Reports abdominal pain, Denies bloating, Denies change in bowel habits, Denies constipation, Denies heartburn, Denies diarrhea, Reports nausea and Denies vomiting Genitourinary: Genitourinary: Denies difficulty urinating and Denies urinary frequency Musculoskeletal: Musculoskeletal: Denies back pain, Denies muscle weakness and Denies numbness Integumentary/Breasts: Skin/Breast: Denies changing lesions and Denies unusual bruising Neurologic: Denies headache(s), Denies numbness, Denies paresthesias and Denies weakness Psychiatric: Psychiatric: Denies anxiety and Denies depression Endocrine: Endocrine: Denies palpitations Hematologic/Lymphatic: Hematologic/Lymphatic: Denies lymphadenopathy [facility] Past Medical History Medical History (Updated 08/30/22 @ 10:37 by Khai Reynolds MD) Asthma Hypercholesterolemia Hypertension Surgical History Surgical History (Updated 08/30/22 @ 10:35 by Khai Reynolds MD) Status post laparoscopic appendectomy (2019) Social History Social History Alcohol intake: never Advance Directives: No Meds Allergies Allergy/AdvReac Type Severity Reaction Status Date / Time No Known Allergies Allergy Unverified 08/30/22 08:04 [No Known Allergies*] Active Medications: Current Medications Dextrose/Sodium Chloride (D5ns) 1,000 mls @ 125 mls/hr IVCONT .Q8H ZAK Physical Exam Vital Signs: Vital Signs: Last Vital Signs Temp 98.2 F 08/30/22 08:00 Pulse 82 08/30/22 08:00 Resp 24 H 08/30/22 08:15 BP 179/104 H 08/30/22 08:00 Pulse Ox 100 08/30/22 08:00 O2 Del Method Room Air 08/30/22 08:00 BMI result Body Mass Index 23.6 Const: General: cooperative and no acute distress Nutritional Appearance: well nourished Orientation/consciousness: patient oriented x3 Limitations: no limitations HEENT: Head: Yes normocephalic and Yes atraumatic Ears: hearing grossly normal bilaterally Resp: Effort & Inspection: normal respiratory effort, no audible wheezes, no cough and no respiratory distress Cardio: Jugular venous distension: no JVD GI: Inspection: Yes normal to inspection Palpation (GI): Soft to palpation, Tenderness to palpation present (GI) in the RUQ and Espinoza's sign positive, no guarding and not rigid Percussion: Yes normal to percussion Auscultation: normal bowel sounds Rectal Exam - Male: Yes deferred Skin: Other: Warm, dry, no rash Neuro: General: patient oriented x3 Extrem: General: Yes no clubbing, cyanosis or edema Results Results Labs: Short CBC 08/30/22 Range/Units 08:10 WBC 11.4 H (4.8-10.8) X10*3/uL Hgb 14.8 (14.0-18.0) g/dl Hct 44.2 (42.0-52.0) % Plt Count 310 (160-400) X10*3/uL BMP 08/30/22 08:10 Sodium 139 Potassium 4.0 D Chloride 101 Carbon Dioxide 28 BUN 17 H Creatinine 0.99 Calcium 9.9 D Liver Function 08/30/22 Range/Units 08:10 Total Bilirubin 1.0 (0.0-1.0) mg/dL AST 121 H (5-37) U/L ALT 176 H (0-40) U/L Alkaline Phosphatase 130 H (39-117) U/L Albumin 4.4 (3.5-5.0) g/dL Urine 08/30/22 Range/Units 08:40 Urine Color Yellow Urine Appearance Clear Urine pH 5.5 (5.0-9.0) Ur Specific [place] 1.020 (1.005-1.025) Urine Protein Negative (Neg-Trace) mg/dL Urine Glucose (UA) Negative (Negative) mg/dL Assessment and Plan (1) Cholecystitis, acute with cholelithiasis: Status: Acute Plan 52-year-old male patient with recurring episodes of right upper quadrant abdominal pain found to have gallstones within the gallbladder with a distended gallbladder and mildly dilated common bile duct. In addition transaminase levels are mildly elevated. We discussed options including fat restricted diet verses laparoscopic/open cholecystectomy. After discussion of the procedure, risks, and alternatives, consents to a laparoscopic or possible open cholecystectomy. He has been added onto the operative schedule for today. Time Spent With Patient Time: Total time managing care of this patient today ____ minutes. Quality Stroke Does the patient have a stroke diagnosis?: No VTE Prior VTE?: No VTE Risk Level:: Surgical - moderate VTE Device Contraindication: N/A - Device Ordered VTE Drug Contraindication: Treatment Not Indicated Procedures Date of Service Date of Service: 08/30/22
--- NOTE | 2022-08-30 10:54 | PHA.MEDREC ---
Pharmacy Consult ? Medication Reconciliation Pharmacy has completed the medication reconciliation.
--- NOTE | 2022-08-30 10:58 | PC.NURSE ---
Report giving to Preop at this time
[2022-08-30] MEDS: Lactated Ringers 1,000 ML 50 ML IVCONT (11:37)
--- NOTE | 2022-08-30 11:38 | P.CONAN_ITS ---
[facility] Active Problems Active Problems: All Active Problems (Updated 08/30/22 @ 10:37 by Khai Reynolds MD) Cholecystitis, acute with cholelithiasis (Acute) Hypercholesterolemia (Acute) Hypertension (Acute) Asthma (Acute) Biliary colic (Acute) Past Medical History Medical History Asthma Hypercholesterolemia Hypertension Functional capacity: independent ambulation Family History Family history of problems with anesthesia: No Surgical History Surgical History Status post laparoscopic appendectomy (2019) History of Problems with Anesthesia: No Social History Social History Alcohol intake: never Patient Tobacco Use Status: Former Tobacco user Meds Allergies Allergy/AdvReac Type Severity Reaction Status Date / Time No Known Allergies Allergy Unverified 08/30/22 08:04 [No Known Allergies*] Active Medications: Current Medications Dextrose/Sodium Chloride (D5ns) 1,000 mls @ 125 mls/hr IVCONT .Q8H ZAK Dextrose/Lactated Ringer's (D5lr) 1,000 mls @ 125 mls/hr IVCONT .Q8H ZAK Lactated Ringer's (Lr) 1,000 mls @ 50 mls/hr IVCONT .Q20H ZAK Last Admin: 08/30/22 11:37 Dose: 50 mls/hr Ondansetron HCl (Ondansetron Hcl 4 Mg/2 Ml Vial) 4 mg IVPUSH QID PRN PRN Reason: Nausea Pharmacy Consult (Consult Rx Perform Med Rec) 1 each MISCELLANE ONCE PRN PRN Reason: Consult order Home Medications Medication Instructions Recorded Confirmed Last Taken Type clonazepam 0.5 mg tablet 0.5 mg PO BID PRN anxiety 08/30/22 08/30/22 Unknown History gemfibrozil 600 mg tablet 600 mg PO DAILY 08/30/22 08/30/22 Unknown History ibuprofen 600 mg tablet 600 mg PO Q6H PRN mild pain 08/30/22 08/30/22 Unknown History lisinopril 10 mg tablet 10 mg PO DAILY 08/30/22 08/30/22 Unknown History tizanidine 4 mg tablet 8 mg PO TID 08/30/22 08/30/22 Unknown History tramadol 50 mg tablet 100 mg PO Q6H PRN severe pain 08/30/22 08/30/22 Unknown History Exam Exam Date and Time: August 30, 2022 1138 Height,Weight and Vital Signs: Height 5 ft 7 in Weight 68.5 kg Last Vital Signs Temp 97 F 08/30/22 11:30 Pulse 70 08/30/22 11:30 Resp 20 08/30/22 11:30 BP 151/78 H 08/30/22 11:30 Pulse Ox 97 08/30/22 11:30 O2 Del Method Room Air 08/30/22 11:30 Pertinent Lab Results Pertinent Lab Results: Laboratory Tests 08/30/22 08/30/22 08/30/22 08:10 08:10 08:40 WBC 11.4 H RBC 5.12 Hgb 14.8 Hct 44.2 MCV 86.3 MCH 28.9 MCHC 33.5 RDW 12.2 Plt Count 310 MPV 9.8 Immature Gran % (Auto) 0.6 H Neut % (Auto) 68.8 Lymph % (Auto) 21.7 Barton % (Auto) 7.1 Eos % (Auto) 1.1 Baso % (Auto) 0.7 Lymph # (Auto) 2.5 Barton # (Auto) 0.8 Eos # (Auto) 0.1 Baso # (Auto) 0.1 Abs Immat Gran (auto) 0.07 H Absolute Neuts (auto) 7.8 Absolute Nucleated RBC 0.000 Nucleated RBC % (auto) 0.0 Sodium 139 Potassium 4.0 D Chloride 101 Carbon Dioxide 28 Anion Gap 14 BUN 17 H Creatinine 0.99 Estim Creat Clear Calc 79.7 Estimated GFR > 60 Random Glucose 112 Calcium 9.9 D Total Bilirubin 1.0 AST 121 H ALT 176 H Alkaline Phosphatase 130 H Total Protein 7.3 Albumin 4.4 Lipase 36 Urine Color Yellow Urine Appearance Clear Urine pH 5.5 Ur Specific [place] 1.020 Urine Protein Negative Urine Glucose (UA) Negative Urine Ketones Negative Urine Blood Trace H Urine Nitrite Negative Ur Leukocyte Esterase Negative Urine RBC 0-2 Urine WBC 0-5 Ur Squamous Epith Cells 0-2 Urine Bacteria None Seen Hyaline Casts 0-2 Airway Mallampati Class: II TM Dist: >3cm Neck ROM: Full Loose/Missing/Broken Teeth: Yes and Upper Heart: RRRCTA Assessment and Plan Final Anesthetic Review Family History of Problems with Anesthesia: No History of Problems with Anesthesia: No NPO: Yes ASA Class: II and Emergency Final Preanesthetic Review: Meds/Allgs Chart Reviewed, Consent Obtained/Reviewed and Anes Risks/Benef Reviewed Patient Risk: Low Procedure Risk: Intermediate Anesthetic Plan Anesthetic Plan: GA Disposition: Standard PACU
--- NOTE | 2022-08-30 13:21 | P.OP_ITS ---
Operative Note Operative Note Date of Service: 08/30/22 Narrative: Preoperative diagnosis: Acute cholecystitis, cholelithiasis Postoperative diagnosis: Same Procedure: Laparoscopic cholecystectomy Surgeon: Khai Reynolds MD [employer] Manager: no physician Anesthesia: General endotracheal Indications for procedure: 52-year-old male patient presenting with recurrent episodes of abdominal pain in the right upper quadrant radiating to the back. he was found to have a dilated gallbladder with gallstones. On examination he is tender in the right upper quadrant Operative findings: distended gallbladder with gallstones within the gallbladder. The gallbladder wall was edematous. Specimen: gallbladder Estimated blood loss: 2 mL Complications: none Procedure details: Patient was brought to the OR and placed in a supine position. After administering general anesthesia the patient's abdomen was prepped with ChloraPrep and draped in a sterile fashion. Local anesthesia consisting of 0.5% Sensorcaine with epinephrine was infiltrated in a periumbilical region. A 5 mm incision was made above the umbilicus in a transverse fashion. The Veress needle was then inserted while elevating abdominal cavity with towel clips. After positive drop test the abdomen was insufflated to a pressure of 15 mm of mercury. The Veress needle was then removed and a 5 mm trocar inserted. The camera was inserted in the abdomen explored. A 12 mm trocar was then placed in the epigastrium. Two 5 mm trocars placed in the right upper quadrant by the outpatient physical therapist assistant. The patient was placed in reverse Trendelenburg positioning and rotated to the left. The gallbladder was grasped with the fundus and retracted cephalad by the outpatient physical therapist assistant. The infundibulum was then grasped and retracted away from the liver bed, also by the outpatient physical therapist assistant. The Dolphin dissected was then used by the surgeon to dissect the peritoneum off the infundibulum to reveal the junction with the cystic duct. Cystic artery was noted slightly medial and posterior to the cystic duct. After obtaining a critical view the cystic duct was doubly clipped and divided. The cystic artery was then doubly clipped and divided. The gallbladder was then dissected off the liver bed using electrocautery with an L hook. Hemostasis was assured all times using the electrocautery. When the gallbladder is completely dissected off the liver bed was placed in an Endo-Catch bag and brought out through the epigastric incision. The gallbladder was sent to pathology for further examination. The abdomen was then re-examined. The liver bed was irrigated and suctioned dry. No bleeding or bile leak could be identified. CO2 was then evacuated and all trocars removed. Fascia was closed at the epigastric incision using a [id number] Polysorb suture. Skin was closed in all incisions using a subcuticular 4 0 Polysorb suture by both the surgeon and outpatient physical therapist assistant. Sterile dressings consisting of Steri-Strips, 2 x 2 gauze, and Tegaderm were then applied. The patient tolerated the procedure well. Sponge instrument and needle counts reported as correct. The patient was transferred to PACU in stable condition.
[2022-08-30] MEDS: oxyCODONE HCl Immed Release 5 MG TABLET PO (13:55)
[2022-08-30] MEDS: fentaNYL citrate/PF 100 MCG/2 ML VIAL 25 MCG IVPUSH ×4 (13:55→14:22)
[2022-08-30] MEDS: Acetaminophen 1,000 MG/100 ML PIGGYBACK 400 MG IV (13:56)
== END 2022-08-30 15:46 | disposition home or self-care (01) ==
LOC: HO.ED 10:25 → HO.SSS 10:25
PROVIDERS: Emergency Provider Emergency Medicine; PCP Internal Medicine; Visit Provider Surgery
PROC: 0FT44ZZ Resection of Gallbladder, Percutaneous Endoscopic Approach (ICD-10-PCS; CPT 47562; principal; 2022-08-30 12:40)
DX: K80.10 Calculus of gallbladder with chronic cholecystitis without obstruction (principal); E78.00 Pure hypercholesterolemia, unspecified; I10 Essential (primary) hypertension; J45.909 Unspecified asthma, uncomplicated; Z79.1 Long term (current) use of non-steroidal anti-inflammatories (NSAID); Z79.899 Other long term (current) drug therapy; Z87.891 Personal history of nicotine dependence
CPT/HCPCS: 47562; 36415; 76705; 80053; 81001; 83690; 85025; 88304; 96361; 96374; 96375; 99285; J0131; J1100; J1885; J2250; J2270; J2405; J3010

== ENCOUNTER → 2022-09-07 14:23 | Outpatient (BNVA) | payer MEDICARE, MEDICAID, SELFPAY | PROVIDERS: PCP Internal Medicine; Visit Provider Surgery ==

== ENCOUNTER 2022-09-12 09:02 | Outpatient (REF) | payer MEDICARE, MEDICAID, SELFPAY | END 2022-09-12 09:03 | disposition home or self-care (01) | LOC: HO.US 09:02 | PROVIDERS: PCP Internal Medicine; Visit Provider Internal Medicine | DX: Z13.89 Encounter for screening for other disorder (principal) ==

== ENCOUNTER 2022-09-21 14:16 | Outpatient (REF) | payer MEDICARE, MEDICAID, SELFPAY ==
--- NOTE | ~2022-09-21 | US_ITS ---
EXAMINATION: US RETROPERITONEAL LIMITED (RENAL ONLY) CLINICAL INFORMATION: Renal cyst. COMPARISON: Ultrasound abdomen limited 08/30/2022. CT abdomen and pelvis with contrast 08/23/2022. TECHNIQUE: Real-time imaging of the kidneys. Limited visualization due to bowel gas. FINDINGS: RIGHT KIDNEY: 9.7 x 5.3 x 6.2 cm (SAG x AP x TRV). An 8.2 x 6.5 x 6.7 cm midpole cyst with septation was characterized as simple on CT scan of 08/23/2022 and is stable in size. No hydronephrosis. No renal calculi. Renal cortical thickness is normal. LEFT KIDNEY: 9.1 x 5.3 x 5.3 cm (SAG x AP x TRV). Multiple renal cysts, largest upper pole 2.1 cm appears simple and there is no indication for followup imaging. No hydronephrosis. No renal calculi. Renal cortical thickness is normal. US/US renal BI IMPRESSION: Right renal midpole cyst with thickened septation is stable in size and was characterized as simple on CT scan of 08/23/2022. CT scan of 01/04/2018 demonstrated a 5.2 cm cyst. Recommend followup ultrasound in 6 months.
== END 2022-09-21 14:17 | disposition home or self-care (01) ==
LOC: HO.US 14:16
PROVIDERS: Visit Provider Internal Medicine
DX: N28.1 Cyst of kidney, acquired (principal)
CPT/HCPCS: 76775